=== PATIENT | female | born 1985 | race Caucasian/White ===

== ENCOUNTER 2016-10-28 01:22 | Emergency (ER) | payer MEDICAID ==
--- NOTE | 2016-10-28 02:09 | EDPHY ---
HPI/HX/ROS/PE/MDM Narrative: Chief complaint: Chest pain, shortness of breath HPI: 31-year-old female presenting complaining of intermittent pain in her right chest and back, jaw pain with some associated cough and shortness of breath. Pain is worse with deep inspiration. She has a family history of PE. Pain is been going on for about the last 3 weeks her since she had root canal surgery on the right jaw. No fevers or chills. Cough is nonproductive. No nausea or vomiting. ROS: 10 point Review of Systems is negative except as noted in the HPI. Physical exam: Gen: Awake, Alert, No Distress HEENT: Nose: no rhinorrhea Eyes: PERRLA, EOMI Mouth: Moist mucosa Neck: Supple, no JVD Chest: nontender, lungs clear to auscultation Heart: S1, S2 normal, no murmur Abd: Soft, non-tender, no guarding Back: no CVA tenderness, no midline tenderness Ext: no edema, non-tender Skin: no rash Neuro: CN II-XII intact, Sensation grossly intact, Strength 5/5 in bilateral upper and lower extremities ED Course: 31-year-old female with pleuritic right chest pain and some shortness of breath with jaw pain. She has no submandibular swelling to suggest Jorge L's angina. Neck is soft without any masses or swelling. Lungs are clear. Chest x-ray is negative, D-dimer is normal. Other laboratory evaluations are normal. White count is normal. There is no findings to suggest acute soft tissue infection. She has no murmurs. She will be discharged with follow with primary care physician, or return for worsening - Data Points Laboratory Results: Laboratory Results 10/28/16 02:15 10/28/16 02:15 10/28/16 02:15 WBC 7.63 10^3/uL (3.80-9.50) RBC 4.30 10^6/uL (4.18-5.33) Hgb 13.9 g/dL (12.6-16.3) Hct 40.6 % (38.0-47.0) MCV 94.4 fL (81.5-99.8) MCH 32.3 pg (27.9-34.1) MCHC 34.2 g/dL (32.4-36.7) RDW 11.7 % (11.5-15.2) Plt Count 290 10^3/uL (150-400) MPV 10.0 fL (8.7-11.7) Neut % (Auto) 53.6 % (39.3-74.2) Lymph % (Auto) 36.2 % (15.0-45.0) [place] % (Auto) 7.1 % (4.5-13.0) Eos % (Auto) 2.1 % (0.6-7.6) Baso % (Auto) 0.7 % (0.3-1.7) Nucleat RBC Rel Count 0.0 % (0.0-0.2) Absolute Neuts (auto) 4.10 10^3/uL (1.70-6.50) Absolute Lymphs (auto) 2.76 10^3/uL (1.00-3.00) Absolute Monos (auto) 0.54 10^3/uL (0.30-0.80) Absolute Eos (auto) 0.16 10^3/uL (0.03-0.40) Absolute Basos (auto) 0.05 10^3/uL (0.02-0.10) Absolute Nucleated RBC 0.00 10^3/uL (0-0.01) Immature Gran % 0.3 % (0.0-1.1) Immature Gran # 0.02 10^3/uL (0.00-0.10) D-Dimer < 0.27 ug/mLFEU (0.00-0.50) Sodium 145 H mEq/L (134-144) Potassium 3.9 mEq/L (3.5-5.2) Chloride 103 mEq/L (97-110) Carbon Dioxide 29 mEq/l (22-31) Anion Gap 13 mEq/L (8-16) BUN 6 L mg/dL (7-23) Creatinine 0.7 mg/dL (0.6-1.0) Estimated GFR > 60 Glucose 100 mg/dL (70-100) Calcium 8.9 mg/dL (8.5-10.4) General Time Seen by Provider: 10/28/16 02:03 Initial Vital Signs: Initial Vital Signs Temperature (C) 37.1 C 10/28/16 01:41 Heart Rate 92 10/28/16 01:41 Respiratory Rate 16 10/28/16 01:41 Blood Pressure 146/92 H 10/28/16 01:41 O2 Sat (%) 100 10/28/16 01:41 O2 Delivery Mode Room Air Allergies/Adverse Reactions: latex Allergy (Intermediate, Verified 01/17/16 20:39) Hives vancomycin Allergy (Intermediate, Verified 01/17/16 20:39) hives/trouble breathing buspirone HCl [From BuSpar] Allergy (Verified 10/28/16 01:39) Home Medications: Medication Instructions Recorded Lexapro 05/28/15 Ativan 10/28/16 Tussin 10/28/16 Departure - Departure Disposition: Home, Routine, Self-Care Clinical Impression: Jaw pain, Toothache, Chest pain Condition: Good Instructions: Toothache (ED), Noncardiac Chest Pain (ED) Additional Instructions: Follow up with her dentist your primary care physician in 2-3 days for re- evaluation. Return to the emergency department for fever, increasing chest pain, shortness of breath, nausea, vomiting, or any other concerns. Referrals: Nancy Jean, PAC [Primary Care Provider] - As per Instructions
[2016-10-28 02:28] LABS: % IMMATURE GRANULYOCYTES 0.3 % (0.0-1.1); ABSOLUTE IMMATURE GRANULOCYTES 0.02 10^3/uL (0.00-0.10); ADD DIFF? NO; ADD MORPH? NO; ADD SCAN? NO; ATYPICAL LYMPHOCYTE FLAG 0 (0-99); FRAGMENT RBC FLAG 0 (0-99); HEMATOCRIT 40.6 % (38.0-47.0); HEMOGLOBIN 13.9 g/dL (12.6-16.3); LEFT SHIFT FLG 0 (0-99); LIPEMIA HEMOLYSIS FLAG 90 (0-99); MEAN CELL HEMOGLOBIN 32.3 pg (27.9-34.1); MEAN CELL HEMOGLOBIN CONCENTR. 34.2 g/dL (32.4-36.7); MEAN CELL VOLUME 94.4 fL (81.5-99.8); PLATELET CLUMPS FLAG 40 (0-99); PLATELET COUNT 290 10^3/uL (150-400); RED CELL DISTRIBUTION WIDTH 11.7 % (11.5-15.2)
[2016-10-28 02:37] LABS: ANION GAP 13 mEq/L (8-16); CALCIUM 8.9 mg/dL (8.5-10.4); CARBON DIOXIDE 29 mEq/l (22-31); CHLORIDE 103 mEq/L (97-110); CREATININE 0.7 mg/dL (0.6-1.0); GLOMERULAR FILTRATION RATE > 60; GLUCOSE 100 mg/dL (70-100); POTASSIUM 3.9 mEq/L (3.5-5.2); SODIUM 145 mEq/L (134-144)
[2016-10-28 03:20] VITALS: BP 124/86; PULSE 82; RESP 18; TEMP 97.9; O2SAT 93
--- NOTE | 2016-10-28 08:25 | DX ---
PA and Lateral Chest October 28, 2016 Indication: Cough Comparison: Portable chest dated June 09, 2016 Findings: The lungs are clear except for mild peribronchial thickening. The heart size is normal. No consolidation or effusion. Impression: Mild airways disease/bronchitis. No pneumonia.
== END 2016-10-28 03:20 | disposition home or self-care (01) ==
DX: R07.9 Chest pain, unspecified (principal); K08.89 Other specified disorders of teeth and supporting structures; R68.84 Jaw pain; Z91.040 Latex allergy status

== ENCOUNTER 2016-12-01 16:08 | Emergency (ER) | payer MEDICAID ==
[2016-12-01 17:02] VITALS: BP 136/86; PULSE 92; RESP 18; TEMP 98.1; O2SAT 98
--- NOTE | 2016-12-01 17:26 | UCPHY ---
H & P Patient Type: Established Smoking Status: Former smoker Time Seen by Provider: 12/01/16 17:01 HPI/ROS: CHIEF COMPLAINT: Right otalgia and discharge HISTORY OF PRESENT ILLNESS: 31-year-old immunocompetent female complaining of 24 hours of right otalgia, otorrhea. No foreign body insertion. No barotrauma. No dizziness. No hearing loss. No vertigo. She is recovering from URI symptoms. Denies cough. Denies sore throat. Denies fever or chills. PRIMARY CARE PROVIDER:[facility] REVIEW OF SYSTEMS: A ten point review of systems was performed and is negative with the exception of the items mentioned in the HPI PAST MEDICAL & SURGICAL HISTORY: No pertinent medical or surgical history SOCIAL HISTORY: Nonsmoker PHYSICAL EXAM (Prior to examination, patient consented to physical exam, hands were washed and my usual and customary physical exam procedures followed) 1) GENERAL: Well-developed, well-nourished, alert and oriented. AppearsUncomfortable 2) HEAD: Normocephalic, atraumatic 3) HEENT: Pupils equal, round, reactive to light bilaterally. Sclera anicteric. Nasopharynx, oropharynx, clear, no lesions. Left ear: Clear EAC, no bulging or erythema to the tympanic membrane. Right ear: Crusted discharge at the meatus of the EAC with erythematous EAC. The tympanic membrane is grossly intact with no erythema or bulging. Bilateral mastoid nontender non boggy 4) NECK: Full range of motion, no meningeal signs. No Adenopathy 5) LUNGS: Clear auscultation bilaterally, no wheezes, no rhonchi, no retractions. 6) HEART: Regular rate and rhythm, no murmur, no heave, no gallop. 7) ABDOMEN: No guarding, 8) MUSCULOSKELETAL: , No peripheral edema or discoloration. 9) BACK: no visual or palpable abnormality. 10) SKIN: No rash, no petechiae. 11) Psychiatric: Patient is oriented X 3, there is no agitation. DIFFERENTIAL DIAGNOSIS: in no particular include but limited to malignant otitis externa, otitis externa, otitis media, mastoiditis (Romero,Maria Isabel Suzan) Constitutional: Initial Vital Signs Temperature (C) 36.7 C 12/01/16 16:59 Heart Rate 92 12/01/16 16:59 Respiratory Rate 18 12/01/16 16:59 Blood Pressure 136/86 H 12/01/16 16:59 O2 Sat (%) 98 12/01/16 16:59 O2 Delivery Mode Room Air Allergies/Adverse Reactions: latex Allergy (Intermediate, Verified 12/01/16 16:59) Hives vancomycin Allergy (Intermediate, Verified 12/01/16 16:59) hives/trouble breathing buspirone HCl [From BuSpar] Allergy (Verified 12/01/16 16:59) Home Medications: Medication Instructions Recorded Lexapro 05/28/15 Ativan 10/28/16 Ciprofloxacin HCl/Dexameth 4 drop OT BID #1 drops.susp 12/01/16 [Ciprodex Otic Suspension] Hydrocodone/APAP 5/325 [[place] 1 tab PO Q6 PRN #15 tab 12/01/16 5/325 (RX)] Pantoprazole Sodium [Protonix] 12/01/16 MDM/Departure - [facility] ED Course/Re-evaluation: No evidence of malignant otitis externa. Treatment for otitis externa and analgesia provided. Usual customary return precautions provided. (Maria Isabel Jasso ) The patient was evaluated and managed by the Physician Practice Specialist, Hussain Jasso. My co-signature indicates that I have reviewed this chart and I agree with the findings and plan of care as documented. I am the secondary supervising physician. (Vicky Jose) - Depart Disposition: Home, Routine, Self-Care Clinical Impression: Right otitis externa Qualifiers: Otitis externa type: other infective Chronicity: acute Qualifier Code: (H60.391 ) Other infective otitis externa, right ear Instructions: Otitis Externa (ED) Additional Instructions: Go to the ER if you develop new or worsening symptoms, hearing loss, dizziness, vomiting, fever or chills or any other symptoms that concern you Prescriptions: Ciprofloxacin HCl/Dexameth [Ciprodex Otic Suspension] 4 drop OT BID #1 drops.susp Hydrocodone/APAP 5/325 [[place] 5/325 (RX)] 1 tab PO Q6 PRN #15 tab PRN Reason: Pain, Severe Referrals: [facility],. [Primary Care Provider] - 2-3 days, call for appt. - PQRS PQRS Measurement: n/a (Maria Isabel Jasso)
== END 2016-12-01 17:55 | disposition home or self-care (01) ==
LOC: CED 16:08
DX: H60.391 Other infective otitis externa, right ear (principal)
CPT/HCPCS: 99214-PO

== ENCOUNTER 2016-12-03 11:48 | Emergency (ER) | payer MEDICAID ==
[2016-12-03 12:18] VITALS: BP 121/60; PULSE 74; RESP 18; TEMP 98.4; O2SAT 95
--- NOTE | 2016-12-03 12:45 | UCPHY ---
H & P Time Seen by Provider: 12/03/16 12:35 Patient Type: Established HPI/ROS: This patient returns for recheck of her otitis externa. She reports severe pain when she put in the Ciprodex drops wound make sure that was still safe to use the Ciprodex drops. She was prescribed these drops 2 days ago after a visit here. ROS: No fevers. No drainage from the ear. No other complaints and 5 point ROS is otherwise negative. Past Medical/Surgical History: Otitis externa. Anxiety Smoking Status: Former smoker Physical Exam: Physical Exam Vital signs are normal. General: No acute distress HEENT: Nose: Clear oropharynx clear ears: Right external canal mild erythema. TM is clear left external canal and TM clear Eyes: Pupils equal and react to light. Extraocular motions are intact. Lungs: No respiratory distress. Cardiac: Brisk capillary refill is intact throughout. Skin: No rash or pallor. Neuro: Alert with no sensorimotor deficits. Constitutional: Initial Vital Signs Temperature (C) 36.9 C 12/03/16 12:15 Heart Rate 74 12/03/16 12:15 Respiratory Rate 18 12/03/16 12:15 Blood Pressure 121/60 H 12/03/16 12:15 O2 Sat (%) 95 12/03/16 12:15 O2 Delivery Mode Room Air Allergies/Adverse Reactions: latex Allergy (Intermediate, Verified 12/01/16 16:59) Hives vancomycin Allergy (Intermediate, Verified 12/01/16 16:59) hives/trouble breathing buspirone HCl [From BuSpar] Allergy (Verified 12/01/16 16:59) Home Medications: Medication Instructions Recorded Lexapro 05/28/15 Ativan 10/28/16 Ciprofloxacin HCl/Dexameth 4 drop OT BID #1 drops.susp 12/01/16 [Ciprodex Otic Suspension] Hydrocodone/APAP 5/325 [[place] 1 tab PO Q6 PRN #15 tab 12/01/16 5/325 (RX)] Pantoprazole Sodium [Protonix] 12/01/16 Medical Decision Making ED Course/Re-evaluation: I reassured the patient regarding her mild otitis externa encouraged her to continue with the Ciprodex. There is no evidence of otitis media or other complicating factors clinically. Departure - Departure Disposition: Home, Routine, Self-Care Clinical Impression: Otitis externa Qualifiers: Otitis externa type: unspecified type Laterality: right Chronicity: acute Qualified Code(s): H60.501 - Unspecified acute noninfective otitis externa, right ear Condition: Good Instructions: Otitis Externa (ED) Additional Instructions: Diagnosis: Otitis externa Plan: Continue or Ciprodex. Tylenol or [place] if needed for ear pain. No driving, alcohol or come [place]. Return for any significant worsening despite the treatment plan Referrals: [facility],. [Primary Care Provider] - As per Instructions - PQRS PQRS Measurement: NA
== END 2016-12-03 13:05 | disposition home or self-care (01) ==
LOC: CED 11:48
DX: H60.501 Unspecified acute noninfective otitis externa, right ear (principal); F41.9 Anxiety disorder, unspecified; Z87.891 Personal history of nicotine dependence
CPT/HCPCS: 99214-PO; G0463-PO